=== PATIENT | female | born 1970 | race Caucasian/White ===

== ENCOUNTER → 2016-05-04 | Outpatient (CLI) | payer OTHER ==
[~2016-05-04] MED LIST: CEPH500C2 PO; HYDRTAB53 PO; LISI-729 PO; PROP80CA7 PO; SYN50 PO
[2016-05-04 09:33] LABS: HEMATOCRIT 41.6 % (37-47); MEAN CELL VOLUME 89.5 fL (80-100); MEAN CORPUSCULAR HEMOGLOBIN 31.6 pg (25-34); MEAN CORPUSCULAR HGB CONC 35.3 g/dl (32-36); MEAN PLATELET VOLUME 10.2 fL (7.4-10.4); PLATELET COUNT 275 K/uL (130-400); RED BLOOD COUNT 4.65 M/uL (4.2-5.4); WHITE BLOOD COUNT 8.19 K/uL (4.8-10.8)
[2016-05-04 09:59] LABS: ALT/SGPT 22 U/L (12-78); AST/SGOT 16 U/L (15-37); BLOOD UREA NITROGEN 11 mg/dl (7-18); BUN/CREATININE RATIO 13.3 (10-20); CALCIUM 8.8 mg/dl (8.5-10.1); CARBON DIOXIDE 28 mmol/L (21-32); CHLORIDE 105 mmol/L (98-107); CHOLESTEROL 172 mg/dl (0-200); CREATININE 0.79 mg/dl (0.60-1.20); GLUCOSE 92 mg/dl (70-99); SODIUM 139 mmol/L (136-145)
[2016-05-04 10:09] LABS: ALB/GLOB RATIO 0.7 (0.9-2); ALKALINE PHOSPHATASE 102 U/L (45-117); CHOLESTEROL/HDL RATIO 5.7; HDL CHOLESTEROL 30 mg/dl; LDL CHOLESTEROL CALCULATED 121 mg/dl; TRIGLYCERIDES 103 mg/dl (0-150); VERY LOW DENSITY LIPOPROT CALC 21 mg/dl
[2016-05-09 00:26] LABS: VITAMIN B6** TC 926 9.6 ng/mL (2.1-21.7)
== END | disposition home or self-care (01) ==
LOC: C.LAB 08:34
PROVIDERS: ATTEND Internal Medicine
DX: Z00.00 Encounter for general adult medical examination without abnormal findings (principal); E03.9 Hypothyroidism, unspecified; F41.9 Anxiety disorder, unspecified

== ENCOUNTER → 2016-05-17 | Outpatient (CLI) | payer OTHER ==
[2016-05-17 10:24] LABS: C-REACTIVE PROTEIN < 0.29 mg/dl (0-0.29); RHEUMATOID FACTOR < 10.0 U/mL (0-15)
== END | disposition home or self-care (01) ==
LOC: C.LAB1850 08:22
PROVIDERS: ATTEND Internal Medicine
DX: R77.1 Abnormality of globulin (principal)

== ENCOUNTER → 2016-05-22 | Outpatient (CLI) | payer OTHER ==
[2016-05-27 02:28] LABS: ALBUMIN 4.2 G/DL (3.8-4.8); ANTI-CENTROMERE AB <1.0 NEG AI (<1.0 NEG); ANTI-SS-A <1.0 NEG AI (<1.0 NEG); ANTI-SS-B <1.0 NEG AI (<1.0 NEG); DNA ds CRITHIDIA NEGATIVE (NEGATIVE); GAMMA GLOBULIN 1.7 G/DL (0.8-1.7); MICROSOMAL AB 4 IU/ML (<9); Sm Antibody <1.0 NEG AI (<1.0 NEG); TOTAL PROTEIN 7.9 G/DL (6.2-8.3)
== END | disposition home or self-care (01) ==
LOC: C.LAB1850 08:14
PROVIDERS: ATTEND Internal Medicine
DX: R77.1 Abnormality of globulin (principal); R76.8 Other specified abnormal immunological findings in serum

== ENCOUNTER → 2016-06-10 | Outpatient (CLI) | payer OTHER | END | disposition home or self-care (01) | LOC: C.LAB1850 09:31 | PROVIDERS: ATTEND Internal Medicine Rheumatology | DX: K21.9 Gastro-esophageal reflux disease without esophagitis (principal); F41.9 Anxiety disorder, unspecified; R76.8 Other specified abnormal immunological findings in serum; R77.8 Other specified abnormalities of plasma proteins ==

== ENCOUNTER → 2016-06-14 | Outpatient (CLI) | payer OTHER ==
[2016-06-14 16:50] LABS: URINE APPEARANCE CLEAR (CLEAR); URINE BILIRUBIN NEG (NEG); URINE COLOR YELLOW; URINE NITRITE NEG (NEG); URINE PH 7.5 (4.5-7.5); URINE SPECIFIC GRAVITY 1.003 (1.000-1.030); UROBILINOGEN NEG (NEG)
[2016-06-14 16:51] LABS: MANUAL MICROSCOPIC REQUIRED? NO; REVIEW REQ? NO
== END | disposition home or self-care (01) ==
LOC: C.LAB1850 08:30
PROVIDERS: ATTEND Internal Medicine Rheumatology
DX: K21.9 Gastro-esophageal reflux disease without esophagitis (principal); F41.9 Anxiety disorder, unspecified; R76.8 Other specified abnormal immunological findings in serum; R77.8 Other specified abnormalities of plasma proteins

== ENCOUNTER → 2016-12-31 | Outpatient (CLI) | payer OTHER | END | disposition home or self-care (01) | LOC: C.LAB1850 08:44 | PROVIDERS: ATTEND Internal Medicine | DX: E03.9 Hypothyroidism, unspecified (principal) ==

== ENCOUNTER → 2017-04-12 | Outpatient (CLI) | payer OTHER ==
[2017-04-12 10:35] LABS: HEMATOCRIT 40.5 % (37-47); HEMOGLOBIN 14.1 g/dL (12.0-16.0); MEAN CELL VOLUME 88.8 fL (80-100); MEAN CORPUSCULAR HEMOGLOBIN 30.9 pg (25-34); MEAN CORPUSCULAR HGB CONC 34.8 g/dl (32-36); MEAN PLATELET VOLUME 10.6 fL (7.4-10.4); PLATELET COUNT 264 K/uL (130-400); RED CELL DISTRIBUTION WIDTH SD 42.2 fL (36.4-46.3); WHITE BLOOD COUNT 9.32 K/uL (4.8-10.8)
[2017-04-12 10:42] LABS: ALBUMIN 3.7 gm/dl (3.4-5.0); ALT/SGPT 25 U/L (12-78); BLOOD UREA NITROGEN 14 mg/dl (7-18); CALCIUM 8.5 mg/dl (8.5-10.1); CARBON DIOXIDE 24 mmol/L (21-32); CREATININE 0.78 mg/dl (0.60-1.20); GLUCOSE 92 mg/dl (70-99); POTASSIUM 3.6 mmol/L (3.5-5.1); SODIUM 134 mmol/L (136-145)
[2017-04-12 10:45] LABS: ALKALINE PHOSPHATASE 99 U/L (45-117); AST/SGOT 18 U/L (15-37); TOTAL PROTEIN 8.6 gm/dl (6.4-8.2)
[2017-04-12 10:57] LABS: HEMOGLOBIN A1C 5.7 % (4.5-5.6)
[2017-04-17 03:31] LABS: ANA SCREEN TC 249X POSITIVE (NEGATIVE); ANTI-SS-A <1.0 NEG AI (<1.0 NEG); ANTI-SS-B <1.0 NEG AI (<1.0 NEG); COMPLEMENT C3 TC 44859W 161 MG/DL (90-180); COMPLEMENT C4 TC 44982E 31 MG/DL (16-47)
[2017-04-17 08:04] LABS: ANA TITER 1:40 TITER (<1:40)
== END | disposition home or self-care (01) ==
LOC: C.LAB1850 08:30
PROVIDERS: ATTEND Internal Medicine Rheumatology
DX: R76.8 Other specified abnormal immunological findings in serum (principal); Z00.00 Encounter for general adult medical examination without abnormal findings; I10 Essential (primary) hypertension; Z87.42 Personal history of other diseases of the female genital tract; Z13.1 Encounter for screening for diabetes mellitus

== ENCOUNTER → 2017-04-14 | Outpatient (CLI) | payer OTHER | END | disposition home or self-care (01) | LOC: C.LABSPEC 08:05 | PROVIDERS: ATTEND Internal Medicine Rheumatology | DX: R76.8 Other specified abnormal immunological findings in serum (principal) ==

== ENCOUNTER → 2017-04-28 | Outpatient (CLI) | payer OTHER ==
--- NOTE | 2017-04-28 16:30 | DIAGNOSTIC IMAGING REPORT ---
KUB HISTORY: Acute generalized abdominal pain with possible constipation R10.13 Abdominal pain, epigastric COMPARISON: None. FINDINGS: The bowel gas pattern is non-obstructive. Cholecystectomy clips noted. Moderate stool volume is seen throughout the colon, notably within the cecum, ascending and transverse portions. There is no organomegaly. Renal shadows are obscured by bowel gas. Calcifications of the pelvis suggest phleboliths. No renal calculi. No ureteral calculi. No pneumoperitoneum or pneumatosis. No fracture. IMPRESSION: 1. Nonobstructive bowel gas pattern. 2. Moderate stool volume suggests constipation. Electronically signed by: Jorden Diaz M.D. 04/28/2017 4:29 PM Dictated Date/Time: 04/28/2017 4:27 PM
== END | disposition home or self-care (01) ==
LOC: C.RAD1850 16:05
PROVIDERS: ATTEND Physician Assistant
DX: R10.13 Epigastric pain (principal)

== ENCOUNTER → 2017-06-03 | Outpatient (CLI) | payer OTHER ==
[~2017-06-03] MED LIST changes: +PROP80CA29 PO; -PROP80CA7 PO
== END | disposition home or self-care (01) ==
LOC: C.PAPS 11:54
PROVIDERS: ATTEND Obstetrics & Gynecology
DX: Z12.4 Encounter for screening for malignant neoplasm of cervix (principal)